=== PATIENT | male | born 1950 | race African-American/Black ===

== ENCOUNTER → 2016-09-12 | Outpatient (CLI) | payer BC, MEDICARE ==
--- NOTE | 2016-09-14 20:28 | SLEEP ---
DATE OF STUDY: 09/12/2016 ATTENDING PHYSICIAN: Dr. Charanjit Daniels. The patient is 66 years old who weighs 210 pounds with a BMI of 31. The patient's [place] score was 15 suggesting moderate subjective hypersomnia. The patient has lost 20-30 pounds and was sent to the lab for reevaluation regarding his sleep apnea. During the night of study, the patient spent 425 minutes in bed and slept for 349 minutes with a sleep efficiency of 82%. Sleep latency was 18 minutes with a REM latency of 22 minutes. Overall, sleep architecture showed increased stage I sleep, normal stage II sleep, normal REM sleep and normal slow wave sleep. During the night of study, the patient had only 1 obstructive apnea, no mixed or central apneas. There were 11 hypopneas. The patient's apnea-hypopnea index was only 2 per hour, supine index 1 per hour and REM index of 9 per hour. Review of nocturnal oximetry study revealed a mean oxygen saturation of 94% with the lowest of 88%. 10% of time oxygen saturation remained between 88-90%. EKG monitoring revealed normal sinus rhythm, average heart rate was 61 beats per minute. PLMs were not seen. Due to low AHI, the patient did not meet the split night criteria for CPAP initiation. IMPRESSION: 1. No clinically significant sleep disordered breathing. The patient's AHI for the entire night was only 2 per hour. 2. No clinically significant nocturnal hypoxia. 3. No clinically significant PLMS. RECOMMENDATIONS: 1. The patient did not meet the criteria for split night study. The patient has lost weight since the last study and may have accounted for resolution of previously diagnosed sleep apnea. 2. Further weight loss is advised. 3. Avoid [employer] DEC[employer] depressants. 4. Caution regarding driving until the patient's hypersomnia is resolved. 5. If the patient's hypersomnia persists, then consider the effect of medications. The patient reportedly is on hydrocodone 3 times a day. CHARLES MENDEZ MD DR: JACY/apryl JOB#: [id number] / [id number] Giovani John MD MTDD
== END | disposition home or self-care (01) ==
LOC: SLPLAB 18:47
PROVIDERS: ATTEND Family Medicine
DX: G47.33 Obstructive sleep apnea (adult) (pediatric) (principal)
CPT/HCPCS: 95810

== ENCOUNTER → 2016-12-04 | Outpatient (CLI) | payer BC, MEDICARE ==
[~2016-12-04] MED LIST: AMLO10TA2 PO; CRESTOR20 MG PO; GADOBUTROL 10 MMOL/10 ML VIAL IV ONE; LISI40TA PO; RIVA20TA2 PO
--- NOTE | 2016-12-04 13:19 | KCIC ---
PROCEDURE MRI cervical spine without and with contrast. HISTORY Severe arthritis, worsening bilateral upper extremity pain and numbness TECHNIQUE Pre and postcontrast, multiplanar, multi sequential MR imaging was performed of the cervical spine. Contrast: 10 cc Gadavist COMPARISON None FINDINGS There is some motion degradation. Cervical vertebral body stature is adequate. There is negligible anterior spondylolisthesis at C4-5 there is degenerative endplate change at C4-5 and C7-T1. There is no significant focal marrow edema. Cervical cord caliber is within normal limits without obvious or expansile signal abnormality, somewhat limited evaluation due to motion. There is no enhancement of the cervical cord or the intervertebral disc spaces. There is no significant abnormality of the cervical medullary junction. There is moderate to severe degenerative disc disease C4-C5, to a lesser degree C5-C6 to C7-T1. C2-3: There is shallow posterior central protrusion. Central canal is minimally narrowed to 9 millimeters. Neural foramina are adequate. C3-C4: There is a posterior protrusion greatest centrally. There is mild buckling of the ligamentum flavum. There is effacement of ventral subarachnoid space. Central canal is narrowed to approximately 6 millimeters. There is mild right facet degenerative change. Neural foramina are overall adequate. C4-5: There is disc osteophyte complex, superimposed shallow bulge/protrusion somewhat greater in the right lateral recess. Central canal is minimally narrowed to 7-8 millimeters. There is right uncovertebral degenerative change. There is likely severe narrowing of the right neural foramen, left neural foramen minimally narrowed. C5-C6: There is minimal disc osteophyte complex and bulge. Central canal is minimally narrowed to 8-9 millimeters. There is mild to moderate facet degenerative change bilaterally. There is mild right uncovertebral degenerative change. There is likely at least moderate narrowing of the right neural foramen, very minimal narrowing on the left. C6-7: There is minimal disc osteophyte complex and bulge. Central canal is minimally narrowed to 8-9 millimeters. There is right uncovertebral degenerative change. There is likely fairly severe right and very minimal left neural foramina compromise. C7-T1: There is negligible disc osteophyte complex and bulge. Central canal is borderline 10 millimeters. There is uncovertebral degenerative change bilaterally. There is moderate to severe left and mild right neural foramina compromise. T1-T2: There is posterior protrusion/small extrusion extending slightly above the intervertebral disc space. Central canal is narrowed to 7-8 millimeters. There is right facet degenerative change. There is likely mild to moderate narrowing of the right neural foramen, left neural foramen overall adequate. IMPRESSION 1. There is spinal stenosis to 6 millimeters at C3-4, to a somewhat lesser degree at C4-5, C5-C6, C6-7, and T1-2. 2. There is multilevel degenerative disc disease greatest C4-5 and to a lesser degree at C5-C6 to C7-T1. There is multilevel spondylosis. 3. Accurate evaluation of the neural foramina is somewhat limited due to motion, suspected neural foramina compromise greatest on the left at C7-T1 and on the right at C6-7, C5-C6, and C4-5. Electronically signed by: Carlos Galan MD (Dec 04, 2016 13:18:20)
== END | disposition home or self-care (01) ==
LOC: KCIC MRI 11:35
PROVIDERS: ATTEND Family Medicine
DX: M19.90 Unspecified osteoarthritis, unspecified site (principal); M48.02 Spinal stenosis, cervical region; M50.321 Other cervical disc degeneration at C4-C5 level; M50.322 Other cervical disc degeneration at C5-C6 level
CPT/HCPCS: 72156; A9585

== ENCOUNTER → 2017-07-25 | Outpatient (CLI) | payer BC ==
[~2017-07-25] MED LIST changes: -GADOBUTROL 10 MMOL/10 ML VIAL IV ONE
--- NOTE | 2017-07-25 09:12 | KCIC ---
MRI Brain without contrast History: Double vision, left eye pain Technique: Multiplanar, multisequential noncontrast MR imaging was performed of the brain. Contrast: None Comparison: None Findings: There is no evidence of an acute infarct or cytotoxic edema. The ventricles, sulci, and cisterns are within normal limits in size and configuration. There is no significant midline shift, intra-axial mass effect, or focal abnormal extra-axial fluid collection. There is no new significant signal abnormality of the brain parenchyma. Minimal T2 and FLAIR hyperintense abnormality of the supratentorial white matter including some scattered tiny foci of the frontal lobes and mild amorphous signal change of the periatrial white matter is stable. There is no significant hemosiderin deposition of the brain parenchyma. There is preservation of the major intracranial flow-voids at the skull base. The mastoid air cells are mostly aerated, minimal patchy fluid on the left. The cerebellar tonsils are normal in location. There is no significant abnormality of the pineal gland or pituitary gland. Paranasal sinuses are overall aerated. There is preserved marrow signal of the clivus. Globes are symmetric in appearance. Impression: 1. There is no new significant intracranial abnormality. Minimal T2 and FLAIR hyperintense signal abnormality of the supratentorial white matter is similar, nonspecific findings which may be due to chronic microvascular ischemic disease in a patient this age. Electronically signed by: Jorge Galan MD (07/25/2017 9:09 AM) [id number]
== END | disposition home or self-care (01) ==
LOC: KCIC MRI 07:52
PROVIDERS: ATTEND Family Medicine
DX: H53.2 Diplopia (principal); H57.12 Ocular pain, left eye
CPT/HCPCS: 70551